=== PATIENT | female | born 1995 | race Caucasian/White ===

== ENCOUNTER 2023-09-26 06:09 | Emergency (ER) | payer BC, SELFPAY ==
[2023-09-26 06:10] VITALS: RESP 20; O2SAT 100
[2023-09-26 06:15] VITALS: BP 124/74; PULSE 78; RESP 20; TEMP 36.7; O2SAT 100; BMI 41.5
--- NOTE | 2023-09-26 06:43 | ED_ITS ---
HPI - General Adult General Chief complaint: Unspecified Complaint, Adult Stated complaint: scratchy throat,dizzy,chest pain Time Seen by Provider: 09/26/23 06:12 Source: patient Mode of arrival: ambulatory Limitations: no limitations History of Present Illness HPI narrative: 27-year-old female presents to the emergency department with a 24 hour history of a scratchy throat, 12 hour history of fatigue, headache, 6 hour history of nausea and 2 episodes of vomiting. No fever. No shortness of breath. Had a little bit of chest pressure with deep breath only this morning, resolved. Tried taking a little bit of Tylenol at 4:00 a.m. when she awoke which seems to have helped the headache and the chest pain a little bit now. No productive cough, no bloody stools, no neurological changes. Has a little bit of left ear pressure as well. No known sick contacts. No recent medication changes. Did not try any other interventions prior to coming to the ED. Past medical history notable for ADHD. Reports her home meds are Adderall XR and short-acting she takes both daily as well as an oral contraceptive pill. Denies allergies. No recent surgeries. ROS notable for the generalized, chest and HEENT symptoms as described above. Otherwise denies times 12 systems Related Data Home Medications Medication Instructions Recorded Confirmed dextroamphetamine-amphetamine 20 1 tab PO DAILY 09/26/23 09/26/23 mg tablet dextroamphetamine-amphetamine ER 1 cap PO DAILY 09/26/23 09/26/23 20 mg 24hr capsule,extend release (Adderall XR) norethindrone 1 mg-ethinyl 1 tab PO DAILY 09/26/23 09/26/23 estradiol 20 mcg (21)-iron 75 mg (7) tablet ([place] Fe 06/10 (28)) Previous Rx's Medication Instructions Recorded ondansetron 4 mg disintegrating 4 mg PO Q8H PRN nausea and 09/26/23 tablet vomiting #10 tabs Allergies Allergy/AdvReac Type Severity Reaction Status Date / Time No Known Drug Allergies Allergy Verified 09/26/23 06:18 [facility] Medical History ADHD ?F90.9 - Attention-deficit hyperactivity disorder, unspecified type (ICD-10) Surgical History No significant past surgical history Social History Smoking Status: Former smoker Second hand tobacco smoke exposure: No How often do you have a drink containing alcohol: never AUDIT-C Alcohol total score: 0 Non-prescribed substance use: denies use Exam Const: Vital Signs, click to edit/add: Vital Signs - 24 hr 09/26/23 06:10 09/26/23 06:15 09/26/23 06:53 Temperature 98.0 F 98.0 F Pulse Rate [Right Pulse Oximeter] 78 Respiratory Rate 20 Respiratory Rate [ Chest] 20 Respiratory Rate [ Head] 20 Blood Pressure [Ri ght Upper Arm] 124/74 Pulse Oximetry 100 Oxygen Delivery Me thod Room Air Documenting provider has reviewed patient's vital signs: yes Common normals: no apparent distress General appearance: cooperative, comfortable and well kempt HENMT: Common normals: normocephalic, TM's normal bilaterally, moist oral mucous membranes, oropharynx normal and dentition normal Head and scalp: normocephalic Face and sinus: normal facial exam Tympanic membrane: TM's normal bilaterally Eye: Common normals: conjunctivae normal General eye: normal appearance of both eyes Conjunctiva: conjunctiva(e) normal Neck & C-Spine: Common normals: full ROM and no lymphadenopathy Resp: Common normals: normal respiratory effort and no use of accessory muscles Effort & inspection: able to speak in complete sentences Cardio: Common normals: regular rate, regular rhythm, S1 normal heart sound, S2 normal heart sound and no murmurs Rate: regular rate Rhythm: regular rhythm Heart sounds: S1 normal and S2 normal GI: Common normals: Normal to inspection, nondistended, normoactive bowel sounds present, soft to palpation, no hepatosplenomegaly and no masses Palpation: soft and no hepatosplenomegaly Other: Mild tenderness to palpation of left lower quadrant only. No rebound tenderness or guarding. Extremity: Common normals: normal to inspection and normal capillary refill General: normal exam except as noted Psych: Common normals: speech normal Appearance: well kempt Attitude: engaged Activity/motor behavior: appropriate eye contact Speech: normal speech Insight: insight good Judgement: judgment good Skin: Common normals: no rashes or lesions noted General skin exam: no rashes or lesions noted Course Course ED Course: Suspect viral illness. No fevers, hypotension, tachycardia or hypoxia. Swabs for influenza a, COVID, strep pending. EKG performed, reassuring. Will give Zofran for nausea and Toradol for headache, await findings. Differential also includes acute coronary syndrome, strep pharyngitis, viral pharyngitis, gastroenteritis, pleurisy, pericarditis, pneumonia, gallbladder disease, shingles, among multiple others for her vague symptoms. Reevaluation(s) Time of Reevaluation #1: 07:19 Reevaluation #1: Negative swabs an EKG reviewed with patient. Zofran is improving the nausea, maybe a little bit of improvement on the headache with the Toradol but not complete. No signs of any major medical complication. I recommended a trial of symptomatic treatment at home monitoring. Patient was agreeable to this. Prescription for Zofran sent to pharmacy. Alarm symptoms reviewed that would warrant repeat ED visit. Watch for respiratory distress, persistent vomiting, dehydration or other signs of abdominal complication. Okay to treat headache and body aches with Tylenol and ibuprofen, off of work today. May try to return tomorrow if fever free. Vital Signs Vital signs: Initial Vital Signs Respiratory Rate 20 09/26/23 06:10 Vital Signs Respiratory Rate 20 09/26/23 06:10 Temperature 98.0 F 09/26/23 06:53 Pulse Rate 78 09/26/23 06:15 Respiratory Rate 20 09/26/23 06:15 Blood Pressure 124/74 09/26/23 06:15 Pulse Oximetry 100 09/26/23 06:15 Oxygen Delivery Method Room Air 09/26/23 06:15 Medications Administered Medications: Discontinued Medications Generic Name Dose Route Start Last Admin Trade Name Freq PRN Reason Stop Dose Admin Ketorolac Tromethamine 10 mg 09/26/23 06:37 09/26/23 06:53 Ketorolac 10 Mg Tablet PO 09/26/23 06:38 10 mg ONCE ONE Administration Ondansetron HCl 4 mg 09/26/23 06:37 09/26/23 06:50 Ondansetron Odt 4 Mg Tab PO 09/26/23 06:38 4 mg ONCE ONE Administration Medical Decision Making Lab Data Lab results reviewed: Yes I reviewed the patient's lab results Lab results narrative: Negative, as expected Labs: Lab Results 09/26/23 09/26/23 Range/Units 06:22 06:25 SARS-CoV-2 (PCR) Negative SARS-CoV-2 (Negative) Influenza Type A (PCR) Negative PCR FLU A (Negative) Influenza Type B (PCR) Negative PCR FLU B (Negative) RSV (PCR) Negative PCR RSV (Negative) Group A Strep DNA NOT DETECTED (Not Detectd) ECG Data Attestation: I personally reviewed and interpreted this ECG as follows: Prior ECG tracings: not available for review Interpretation: Normal sinus rhythm, rate of 80. Normal intervals and axis. No significant ST or T-wave abnormalities. P-waves are little enlarged in lead 2 indicating that she could have some underlying left atrial enlargement but not quite diagnostic. Good R-wave progression. No signs of ischemia. Discharge Plan Discharge Clinical Impression: Viral infection Patient Disposition: Home w/ Parent or Adult Condition: Stable Instructions: Gastroenteritis (DC) Additional Instructions: You swabs for strep, influenza and COVID are negative. I suspect that this is a different spring circulating virus causing your illness today. I would like for you to stay home from work today, may attempt to return tomorrow if your fever free and starting to feel better. It is okay to use Tylenol 1000 mg every 6 hours and or ibuprofen 600 mg every 6 hours for headache, body aches or sore throat. Drink lots of fluids. I have given a prescription for Zofran, a common anti nausea medicine. I have sent this to her pharmacy. You would be due for another dose at around mid afternoon. This should cut down on the risk of dehydration from vomiting. Your exam is very reassuring. But if you start havi ng high fevers, severe abdominal pain, worsening of symptoms, you should seek re-evaluation. For most, symptoms last 3-5 days. Activity Level: Activity as Tolerated Discharge Diet: Regular Prescriptions: New ondansetron 4 mg tablet,disintegrating 4 mg PO Q8H PRN (Reason: nausea and vomiting) Qty: 10 0RF No Action norethindrone-e.estradiol-iron [[place] Fe 06/10 (28)] 1 mg-20 mcg (21)/75 mg (7) tablet 1 tab PO DAILY dextroamphetamine-amphetamine [Adderall XR] 20 mg capsule,extended release 24hr 1 cap PO DAILY dextroamphetamine-amphetamine 20 mg tablet 1 tab PO DAILY Follow Up/Referrals: Provider,Not a Local [Primary Care Provider] - Stand Alone Forms: [employer] Info Instructions
[2023-09-26] MEDS: ONDANSETRON ODT 4 MG TAB PO (06:50)
[2023-09-26 06:52] LABS: Strep A DNA Probe* NOT DETECTED (Not Detectd)
[2023-09-26 06:53] VITALS: TEMP 36.7
[2023-09-26] MEDS: KETOROLAC 10 MG TABLET PO (06:53)
[2023-09-26 07:04] LABS: PCR FLU A Negative PCR FLU A (Negative); PCR FLU B Negative PCR FLU B (Negative); PCR RSV Negative PCR RSV (Negative); SARS PCR* Negative SARS-CoV-2 (Negative)
== END 2023-09-26 07:23 | disposition home or self-care (01) ==
PROVIDERS: Emergency Provider Family Medicine
DX: B34.9 Viral infection, unspecified (principal)
CPT/HCPCS: 87631; 87651; 93005; 99283; A9270